=== PATIENT | male | born 1975 | race Hispanic/Latino ===

== ENCOUNTER 2020-08-04 16:27 | Observation (INO) | payer OTHER ==
[~2020-08-04] VITALS: Ht 172.7 cm; Wt 95.1 kg
[2020-08-04 16:57] LABS: BASOPHILS % (AUTO) 6.8 % (0.0-5.0); HEMATOCRIT 48.5 % (42-54); MEAN CORPUSCULAR HEMOGLOBIN 28.2 pg (27.0-33.0); MEAN CORPUSCULAR HGB CONC 34.4 g/dL (32.0-36.0); MEAN CORPUSCULAR VOLUME 81.8 fL (79-99); MONOCYTES % (AUTO) 3.3 % (3.0-13.0); NEUTROPHILS % (AUTO) 55.4 % (40.0-77.0); NUCLEATED RED BLOOD CELLS 0.3 % (0.0-0.19); PLATELET COUNT (AUTO) 487 K/uL (130-400); RED BLOOD CELL COUNT(AUTO) 5.93 MIL/uL (4.50-6.20); RED CELL DISTRIBUTION WIDTH 14.5 % (11.0-15.5)
[2020-08-04 17:06] LABS: WHITE BLOOD COUNT (AUTO) 39.4 K/uL (4.8-10.8)
[2020-08-04 17:08] LABS: CREATININE 1.5 mg/dL (0.5-1.5); POTASSIUM 4.5 mmol/L (3.5-5.1)
[2020-08-04 17:13] LABS: ALBUMIN 4.2 g/dL (3.5-5.0); BILIRUBIN,TOTAL 0.5 mg/dL (0.2-1.0); TOTAL PROTEIN, SERUM 8.2 g/dL (6.0-8.3)
[2020-08-04] MEDS ORDERED: IOHEXOL 350 MG/ML 100ML INFUS..BTL IV ONE (17:20)
[2020-08-04 17:29] LABS: APPEARANCE,URINE Clear (CLEAR); BILIRUBIN,URINE Negative (NEGATIVE); COLOR,URINE Yellow (YELLOW); GLUCOSE, URINE (UA) >=1000 mg/dL (NEGATIVE); KETONES,URINE Negative (NEGATIVE); LEUKOCYTE ESTERASE ,URINE Negative (NEGATIVE); NITRATE,URINE Negative (NEGATIVE); OCCULT BLOOD,URINE Negative (NEGATIVE); PROTEIN,URINE Negative (NEGATIVE)
[2020-08-04] MEDS ORDERED: SODIUM CHLORIDE 0.9% 1000ML 1,000 ML IV ONE (17:39)
[2020-08-04 17:51] LABS: BAND NEUTROPHILS % (MANUAL) 8 % (0-2); EOSINOPHILS % (MANUAL) 1 % (1-6); LYMPHOCYTES % (MANUAL) 7 % (22-44); MAN.DIFF COMMENT-IMPRESSION MANUAL DIFFERENTIAL; METAMYELOCYTES % 2 % (0-0); MONOCYTES % (MANUAL) 6 % (2-9); MYELOCYTES % 7 % (0-0); REACTIVE LYMPHOCYTES 4 % (0-0); SEGMENTED NEUTROPHILS % 65 % (40-70)
[2020-08-04 18:58] LABS: BACTERIA,URINE Rare /HPF (None Seen); MUCUS,URINE Few LPF (None Seen); RBC,URINE None Seen /HPF (0-1); SQUAMOUS EPITHELIAL CELL,UR Rare /HPF (0-2); WBC,URINE 0-1 /HPF (0-1)
[2020-08-04] MEDS ORDERED: ACETAMINOPHEN 325 MG TAB PO PRN ×2 (19:45)
[2020-08-04] MEDS ORDERED: DIPHENHYDRAMINE HCL 25 MG CAPSULE PO PRN (19:45)
[2020-08-04] MEDS ORDERED: LACTULOSE 20 GM/30 ML UDCUP PO PRN (19:45)
[2020-08-04] MEDS ORDERED: GUAIFENESIN-DM 200/20 MG 10 ML PO PRN (19:45)
[2020-08-04] MEDS ORDERED: NITROGLYCERIN 0.4 MG SL TAB SL PRN (19:45)
[2020-08-04] MEDS ORDERED: ONDANSETRON HCL 4 MG/2 ML VIAL IV PRN (19:45)
[2020-08-04] MEDS ORDERED: DiphenhydrAMINE HCL 50 MG/ML VIAL IV PRN (19:45)
[2020-08-04] MEDS ORDERED: MAG HYDROX/AL HYDROX/SIMETH ES 30 ML SUSP UDCUP PO PRN (19:45)
[2020-08-04] MEDS: LISINOPRIL 20 MG TABLET PO SCH (20:45)
[2020-08-04] MEDS: METFORMIN HCL 500 MG TAB.SR.24H PO SCH (20:45)
[2020-08-04] MEDS ORDERED: LISINOPRIL 20 MG TABLET ONE (20:50)
[2020-08-04] MEDS ORDERED: HEPARIN SODIUM 5000UNIT/ML 1ML VIAL ONE (20:50)
[2020-08-04] MEDS ORDERED: METFORMIN HCL 500 MG TABLET ONE (20:50)
[2020-08-04] MEDS ORDERED: INSULIN HUMULIN R 100 UNIT/ML 3ML ONE (20:58)
[2020-08-04] MEDS: HEPARIN SODIUM 5000UNIT/ML 1ML VIAL SQ SCH (21:00)
[2020-08-04] MEDS ORDERED: DEXTROSE 50%-WATER 50 ML DISP.SYRIN IV PRN (21:00)
[2020-08-04] MEDS: INSULIN HUMULIN R 100 UNIT/ML 3ML SQ SCH (21:00)
[2020-08-04] MEDS ORDERED: GLUCAGON 1MG KIT 1 MG ML IM PRN (21:00)
[2020-08-04 22:45] VITALS: BP 137/96
[2020-08-04] MEDS ORDERED: LISI-613 PO (22:56)
[2020-08-04] MEDS ORDERED: METF-444 PO (22:56)
[2020-08-05 03:38] LABS: BASOPHILS % (AUTO) 6.2 % (0.0-5.0); EOSINOPHILS % (AUTO) 1.3 % (0.0-8.0); HEMATOCRIT 45.4 % (42-54); MEAN CORPUSCULAR HEMOGLOBIN 27.7 pg (27.0-33.0); MEAN CORPUSCULAR HGB CONC 33.5 g/dL (32.0-36.0); MEAN CORPUSCULAR VOLUME 82.8 fL (79-99); MONOCYTES % (AUTO) 3.8 % (3.0-13.0); NEUTROPHILS % (AUTO) 53.2 % (40.0-77.0); NUCLEATED RED BLOOD CELLS 0.4 % (0.0-0.19); PLATELET COUNT (AUTO) 454 K/uL (130-400); RED BLOOD CELL COUNT(AUTO) 5.48 MIL/uL (4.50-6.20); RED CELL DISTRIBUTION WIDTH 14.6 % (11.0-15.5)
[2020-08-05 03:42] LABS: HEMOGLOBIN A1C 10.5 % (4.0-6.0)
[2020-08-05 03:43] LABS: WHITE BLOOD COUNT (AUTO) 36.4 K/uL (4.8-10.8)
[2020-08-05 03:58] LABS: ALBUMIN 3.5 g/dL (3.5-5.0); BILIRUBIN,TOTAL 0.6 mg/dL (0.2-1.0); CREATININE 1.2 mg/dL (0.5-1.5); POTASSIUM 4.1 mmol/L (3.5-5.1); THYROID STIMULATING HORMONE 1.52 uIU/mL (0.36-3.74); TOTAL PROTEIN, SERUM 6.8 g/dL (6.0-8.3)
[2020-08-05 04:16] VITALS: BP 106/71
[2020-08-05] MEDS: INSULIN HUMULIN R 100 UNIT/ML 3ML SQ SCH ×4 (06:20→20:58)
[2020-08-05 07:30] VITALS: BP 129/82
[2020-08-05] MEDS: METFORMIN HCL 500 MG TAB.SR.24H PO SCH (08:15)
[2020-08-05] MEDS: LISINOPRIL 20 MG TABLET PO SCH ×2 (08:15→20:57)
[2020-08-05] MEDS: HEPARIN SODIUM 5000UNIT/ML 1ML VIAL SQ SCH ×2 (08:36→20:17)
[2020-08-05 11:15] VITALS: BP 143/93
[2020-08-05 16:00] VITALS: BP 134/92
[2020-08-05 19:46] VITALS: BP 173/107
[2020-08-05] MEDS: ALLOPURINOL 100 MG TABLET PO SCH (20:09)
[2020-08-05] MEDS: SODIUM BICARBONATE 650 MG TAB PO SCH (20:09)
[2020-08-05] MEDS ORDERED: LABETALOL 20 MG/4 ML DISP.SYRIN IV PRN (20:15)
[2020-08-05 23:47] VITALS: BP 121/86
[2020-08-06 04:08] VITALS: BP 114/86
[2020-08-06 06:25] LABS: BASOPHILS % (AUTO) 7.1 % (0.0-5.0); EOSINOPHILS % (AUTO) 1.6 % (0.0-8.0); HEMATOCRIT 48.4 % (42-54); LYMPHOCYTES % (AUTO) 12.9 % (21.0-51.0); MEAN CORPUSCULAR HGB CONC 33.9 g/dL (32.0-36.0); MEAN CORPUSCULAR VOLUME 82.6 fL (79-99); MONOCYTES % (AUTO) 2.5 % (3.0-13.0); NEUTROPHILS % (AUTO) 54.4 % (40.0-77.0); NUCLEATED RED BLOOD CELLS 0.3 % (0.0-0.19); PLATELET COUNT (AUTO) 446 K/uL (130-400); RED BLOOD CELL COUNT(AUTO) 5.86 MIL/uL (4.50-6.20); RED CELL DISTRIBUTION WIDTH 14.6 % (11.0-15.5)
[2020-08-06 06:33] LABS: WHITE BLOOD COUNT (AUTO) 34.8 K/uL (4.8-10.8)
[2020-08-06 06:59] LABS: ALBUMIN 3.8 g/dL (3.5-5.0); BILIRUBIN,TOTAL 0.7 mg/dL (0.2-1.0); CREATININE 1.2 mg/dL (0.5-1.5); POTASSIUM 4.6 mmol/L (3.5-5.1); TOTAL PROTEIN, SERUM 7.4 g/dL (6.0-8.3)
[2020-08-06 07:00] VITALS: BP 142/101
[2020-08-06] MEDS: INSULIN HUMULIN R 100 UNIT/ML 3ML SQ SCH ×2 (07:30→11:58)
[2020-08-06] MEDS: HEPARIN SODIUM 5000UNIT/ML 1ML VIAL SQ SCH (08:17)
[2020-08-06] MEDS: METFORMIN HCL 500 MG TAB.SR.24H PO SCH (08:20)
[2020-08-06] MEDS: SODIUM BICARBONATE 650 MG TAB PO SCH (08:20)
[2020-08-06] MEDS: ALLOPURINOL 100 MG TABLET PO SCH (08:20)
[2020-08-06] MEDS: LISINOPRIL 20 MG TABLET PO SCH (08:22)
[2020-08-06 11:30] VITALS: BP 152/107
[2020-08-06 13:53] VITALS: BP 139/83
== END 2020-08-06 14:50 | disposition home or self-care (01) ==
LOC: EDH 16:27 → EDHIP 19:44 → INTOOBSV 19:44 → 3AH 22:33
PROVIDERS: ADMIT Family Medicine; ATTEND Family Medicine
DX: D72.829 Elevated white blood cell count, unspecified (principal); I10 Essential (primary) hypertension; E11.9 Type 2 diabetes mellitus without complications; K42.9 Umbilical hernia without obstruction or gangrene; Z86.19 Personal history of other infectious and parasitic diseases; Z90.49 Acquired absence of other specified parts of digestive tract; Z79.84 Long term (current) use of oral hypoglycemic drugs; Z79.899 Other long term (current) drug therapy
CPT/HCPCS: 36415 ×2; 71260; 74177; 80053 ×2; 81001; 82948 ×5; 83605; 84145; 85025 ×2; 85651; 86038; 86140; 86235; 86701; 87040 ×2; 87088; 87390; 96372 ×2; 96374; 99285; G0378 ×43; J1644 ×4; J1815 ×6; J7030; Q9967; 86215